=== PATIENT | male | born 1965 | race Caucasian/White ===

== ENCOUNTER 2020-11-23 19:16 | Emergency (ER) | payer SELFPAY ==
--- OUTSIDE RECORDS SUMMARY | 2020-11-23 19:19 | XMS REPORT | Continuity of Care Document ---
:1965 Author Organization [facility] t Address [address] [place] [address] Care Team Providers Name Role Phone COCO RICHTER Attending Clinician Unavailable COCO RICHTER Admitting Clinician Unavailable Problems Condition Condition Condition Status Onset Resolution Last Treating Co mments Source Name Details Category Date Date Treatment Clinician Date Anterior Anterior Diagnosis Active 2017-[address] [facility] chest wall chest wall 1-18 Sarah kes - pain pain 00:00: Memoria 00 l (LUF/LI V/SA) Fracture Fracture Problem Active 2014[facility] multiple [facility]: [facility] a ribs ribs 00 l (LUF/LI V/SA) Heart Heart Problem Active [facility] disease disease [facility] - NOS NOS [facility] (LUF/LI V/SA) Myocardial Myocardial Problem Active [facility] infarction infarction Sarah kes - [facility] l (LUF/LI V/SA) Hypertensi Hypertensi Problem Active [facility] ve ve [facility] - disorder disorder [facility] (LUF/LI V/SA) Acute pain Acute pain Problem [facility] ([facility]/LI V/SA) Chest pain Chest pain Problem [facility] ([facility]LI [facility]/SA) Numbness Numbness Problem [facility]SA) Allergies, Adverse Reactions, Alerts This patient has no known allergies or adverse reactions. Social History Smoking Status Start Date Stop Date Source Never sm[facility]) Medications Ordered Filled Start Stop Current Ordering Indication Dosage Frequency Signature Comments Components Source Medication Medication Date Date Medication? Clinician (SIG) Name Name Acetaminoph Acetaminoph Yes pain 1tab Q5H [facility] en 300 MG / en 300 MG / L ukes - Codeine Codeine [facility] Phosphate Phosphate l 30 MG Oral 30 MG Oral (SARAH F/LI Tablet Tablet V/SA) Cyclobenzap Cyclobenzap Yes 5mg TID [facility] rine Oral rine Oral [facility] ([facility] V/SA) Naproxen Naproxen Yes 500mg BID [facility] 500 MG Oral 500 MG Oral L ukes - Tablet Tablet [facility] (LUF/LI V/SA) Immunizations Ordered Immunization Filled Immunization Date Status Commen ts Source Name Name NOT CURRENT NOT CURRENT Unknown Completed [facility] (LUF/RAIZA/SA) Vital Signs Vital Name Observation Time Observation Value Comments Source Body Temperature 2018-05-13 16:50:00 97.9 F [facility] (LUF/RAIZA/SA) Pulse Rate 2018-05-13 16:50:00 91 /min [facility] (LUF/RAIZA/SA) Respiratory Rate 2018-05-13 16:50:00 20 /min [facility] (LUF/RAIZA/SA) O2% BldC Oximetry 2018-05-13 16:50:00 97 % [facility] (LUF/RAIZA/SA) BP Systolic 2018-05-13 16:50:00 111 mm[Hg] [facility] (LUF/RAIZA/SA) BP Diastolic 2018-05-13 16:50:00 83 mm[Hg] [facility] (LUF/RAIZA/SA) Height 2018-05-13 16:50:00 67 in [facility] L [facility] (LUF/RAIZA/SA) Weight Measured 2018-05-13 16:50:00 150 lbs [facility] S t [facility] (LUF/RAIZA/SA) BMI (Body Mass Index) 2018-05-13 16:50:00 23.5 [facility] (LUF/RAIZA/SA) Procedures This patient has no known procedures. Encounters Start End Encounter Admission Attending Care Care Encounter Source Date/Time Date/Time Type Type Clinicians Facility Department ID 2018-05-13 2018-05-13 Inpatient [facility] [id number] [facility] [address] 16:23:00 18:56:00 [facility] L [facility] - N, [address] [place], [place]LUF[place] [address] Results Test Description Test Time Test Comments Results Result Comments Source TROPONIN-I Quantitative 2018-05-13 18:35:00 Test Item Value Reference Range Interpretation Comme nts Troponin-I (test code = <0.015 ng/ml 0.000-0.034 N The 99th Percentile URL is 0.045 TROP) ng/mL for the S trishmens [place] Troponin I. Th e Joint Society of Card iology/[place] College of Card iology (ESC/ACC) and the [facility] Academy of Clinical Bioche holley Standards of Laboratory P ractices (NACB) recommends that the diagnosis of AMI includes th e presence of clinical histor y suggestive of Acute Coronary Syndrome (ACS) and a maximum rory ntration of cardiac troponi n exceeding the 99th percentile of a normal reference popul ation [upper reference limit (URL)] on at least one occas ion during the first 24 hours after the clinical event. Repeat @ [id number] 17:23:00 Test Item Value Reference Range Interpretation Comments CKMB (test code = CKMB) 2.30 ng/ml 0.00-2.36 TROPONIN-I [id number] 17:23:00 Test Item Value Reference Range Interpretation Comments Troponin-I (test <0.015 ng/ml 0.000-0.034 N The 99th Pe rcentile URL code = TROP) is 0.045 ng/mL for the Siemens [place] T roponin I. The Joint Euro pean Society of Cardiology/[facility] College of Card iology (ESC/ACC) and t [facility] of Clinical Bioche holley Standards of La boratory Practices (NACB ) recommends that the diagnosis of AM I includes the presence of clinical history suggest renetta of Acute Coronary Syndrome (ACS) and a max imum concentration o f cardiac troponin exceed ing the 99th percentile of a normal referenc e population [upp er reference limit (URL)] on at least one oc casion during the firs t 24 hours after the clini archana event. [id number] 17:23:00 Test Item Value Reference Range Interpretation Comments CPK (test code = CPK) 246 U/L 30-135 H XR CHEST 2 PA [id number] 17:20:54EXAM: XR CHEST 2 PA LATERALINDICATION: Chest painCOMPARISON: Chest x-rays 06/02/2015, 09/07/13 and 05/26FINDINGS:MEDICAL DEVICES: NoneLUNGS: The lungs are diffusely hyperinflated. Calcified bibasilar granulomataare stable. No soft tissue mass or infiltrate.PLEURA: No effusions or pneumothorax.HEARTAND MEDIASTINUM: Normal size and contour.BONES AND SOFT TISSUES: Intact. Degenerative changes of the distal rightclavicle are stable. Calcified left axillary soft tissue nodule measures 19 mmand is stable. A round metallic foreign body in the right chest wall is stable.IMPRESSION:Stable pulmonary hyperinflation. No acute cardiopulmonary process. Otherfindings in the chest are stable.This final report was electronically signed by Dr Ebony Rodriguez MD 05/13/20185:14 PMDictated By: EBONY RODRIGUEZDate: 05/13/2018 17:14PT AND [id number] 17:08:00 Test Item Value Reference Range Interpretation Comments Protime (test code 10.3 seconds 9.0-11.8 = PT) INR (test code = 1.0 0.9-1.1 INR results are INR) intended ONLY t o monitor Oral Anticoagulant t herapy in stablized pa tients. The INR Therape utic Range is 2.0 - 3.0 Patients with a mechanical hear t, the INR Range is 2. 5 - 3.5 [id number] 17:08:00 Test Item Value Reference Range Interpretation Comments aPTT (test code = PTT) 27.8 seconds 25.3-35.7 [id number] 17:04:00 Test Item Value Reference Range Interpretation Comments Glucose (test code 102 mg/dl 75-110 = GLU) BUN (test code = 6.0 mg/dl 6.0-17.0 BUN) Creatinine (test 1.0 mg/dl 0.4-1.2 code = CREA) Sodium (test code = 140 mmol/l 137-145 NA) Potassium (test 3.8 mmol/l 3.5-5.0 code = K) Chloride (test code 108 mmol/l 98-107 H = CL) CO2 (test code = 24 mmol/l 22-30 CO2) Calcium (test code 8.6 mg/dl 8.4-10.2 = CALC) T Protein (test 8.1 gm/dl 5.1-8.7 code = TP) Albumin (test code 3.8 gm/dl 3.5-4.6 = ALB) A/G Ratio (test 0.9 % 1.1-2.2 L code = AGRAT) AST (SGOT) (test 24 U/L 11-36 code = AST) ALT (SGPT) (test 29 U/L 11-40 code = ALT) Alkaline Phos (test 68 U/L 47-114 code = ALKP) Total Bilirubin 0.3 mg/dl 0.2-1.2 (test code = TBIL) Globulin (test code 4.3 gm/dl 2.3-3.5 H = GLOBU) Calcium, Corrected 8.8 mg/dl 8.4-10.2 Various f ormulas exist (test code = for corrected s damaris CALCCORR) calcium results , each yielding differ ent values. This corrected resul t was based on the fo rmula: Corrected Calci um = SerumCalcium + [0.8 * ( 4 - SerumAlbu min)] EGFR if >60 Tanzanian (test code mL/min/1.73m\\ = EGFRAA) S\\2 EGFR if Non- >60 Estimate d Glomerular Tanzanian (test code mL/min/1.73m\\ Filtrat ion Rate (eGFR) = EGFRNA) S\\2 Reference Inter vals Decision Points for 18 years and older and average body ma ss: >= 60 Does not exc lude kidney disease. 30 - 59 Suggests modera te chronic kidney disease and indicat es the need for furthe r investigation including asses sment of proteinuria and cardiovascular factors. < 30 Usually in dicates a need for refe rral for assessment and management of c hronic kidney failure. CBC WITH AUTO [id number] 16:44:00 Test Item Value Reference Range Interpretation Comments WBC (test code = 7.50 10\\S\\3/ul 4.80-10.80 WBC) RBC (test code = 4.95 10\\S\\6/ul 4.70-6.10 RBC) Hemoglobin (test 15.9 gm/dl 14.0-18.0 code = HGB) Hematocrit (test 45.1 % 42.0-50.0 code = HCT) MCV (test code = 91.1 fL 80.0-94.0 MCV) MCH (test code = 32.1 pg 27.0-31.0 H MCH) MCHC (test code = 35.3 gm/dl 33.0-37.0 MCHC) RDW (test code = 13.4 % 11.5-14.5 RDWVC) Platelet (test code 222 10\\S\\3/ul 130-400 = PLT) MPV (test code = 10.4 fL 7.4-10.4 A "NOT MEASUR ED" MPV) RESULTS ARE DIS PLAYED WHEN THE INSTRU MENT HAS A SUPPRESSE D OR UNREPORTABLE RE SULT. THIS WILL MOST OFTEN HAPPEN WITH THE MPV WHEN THERE IS A N ABNORMAL PLATEL ET DISTRIBUTION DU E TO A CRITICAL LOW VA LUE OR PLATELET CLUMPI NG. THE RDW MAY BE SUPPRESSED IF T HERE ARE MULTIPLE PE AKS PRESENT ON THE RBC HISTOGRAM. IN THIS CASE, A MANUAL REVIEW OF THE SLIDE WI LL BE PERFORMED, AND RBC MORPHOLOGY WILL BE NOTED ON THE RE PORT. NE% (test code = 35.6 % 42.0-75.0 L NE) LY% (test code = 48.8 % 13.0-42.0 H LY) MO% (test code = 8.8 % 4.0-14.0 MO) EO% (test code = 5.6 % 1.0-5.0 H EO) BA% (test code = 0.8 % 0.0-3.0 BA) IG% (test code = 0.4 % 0.0-0.4 IG%) AUTO DIFF
[2020-11-23 19:46] LABS: Protime INR 0.92
[2020-11-23 19:47] LABS: Hematocrit 39.5 % (39.6-49.0); Lymphocytes % 45.5 % (15.3-44.8); MPV 8.7 fL (7.6-11.3); RBC Red Blood Cell Count 4.13 M/uL (4.33-5.43)
[2020-11-23 19:58] LABS: ALT/SGPT 27 U/L (12-78); AST/SGOT 21 U/L (15-37); Albumin 3.2 g/dL (3.4-5.0); Alkaline Phosphatase 73 U/L (45-117); BUN Blood Urea Nitrogen 7 mg/dL (7-18); Bicarbonate 23 mmol/L (21-32); Bilirubin Direct < 0.1 mg/dL (0-0.2); Bilirubin Total 0.3 mg/dL (0.2-1.0); Glucose Level 91 mg/dL (74-106); Magnesium 2.1 mg/dL (1.8-2.4); NT PRO-BNP 158 pg/mL (<125); Potassium 3.6 mmol/L (3.5-5.1); Protein, Total 7.1 g/dL (6.4-8.2); Sodium Level 135 mmol/L (136-145); Troponin (Emerg Dept Use Only) < 0.02 ng/mL (0.0-0.045)
--- NOTE | 2020-11-23 20:27 | RAD REPORT ---
EXAM DESCRIPTION: RAD - Chest Single View - 11/23/2020 7:54 pm CLINICAL HISTORY: CHEST PAIN COMPARISON: None TECHNIQUE: AP portable chest image was obtained 11/23/2020 7:54 pm . FINDINGS: No focal mass or consolidation. Interstitial markings are mildly prominent with baseline u nknown. Heart and vasculature are normal. No measurable pleural effusion and no pneumothorax. No acut e bony abnormality seen. No acute aortic findings suspected. IMPRESSION: No focal mass consolidation. Mildly prominent lung markings are probably baseline. Mild edema or infiltrate could be masked.
--- NOTE | 2020-11-23 21:07 | ER ---
Nurse's Notes [facility] Name: Escobar Chase Age: 55 yrs Sex: Male : 1965 Arrival Date: 11/23/2020 Time: 19:20 Bed 4 Private MD: Diagnosis: Angina pectoris Presentation: 11/23 19:20 Chief complaint: EMS states: chest pain that started an hour ago, Pt took 2 baby wh aspirin and was given 2 more by EMS. Pt also took 1 Nitro without relief. Pt states Hx of AK with stents. Coronavirus screen: Client denies travel out of the [place] in the last 14 days. Ebola Screen: Patient negative for fever greater than or equal to 101.5 degrees Fahrenheit, and additional compatible Ebola Virus Disease symptoms Patient denies exposure to infectious person. Initial Sepsis Screen: Does the patient meet any 2 criteria? No. Patient's initial sepsis screen is negative. Does the patient have a suspected source of infection? No. Patient's initial sepsis screen is negative. Risk Assessment: Do you want to hurt yourself or someone else? Patient reports no desire to harm self or others. Onset of symptoms was November 23, 2020. Care prior to arrival: Medication(s) given: ASA, 81 mg, x 2, IV initiated. 20 GA, in the left antecubital area. 19:20 Method Of Arrival: EMS: [facility] 19:20 Acuity: KYLIE 3 Historical: - Allergies: 19:25 No Known Allergies; - PMHx: 19:25 High Cholesterol; Myocardial infarction; Hypertension; - PSHx: 19:25 None; - Immunization history:: Adult Immunizations not up to date. - Social history:: Smoking status: Patient reports the use of cigarette tobacco products, smokes two packs cigarettes per day. Screenin:26 Abuse screen: Denies threats or abuse. Denies injuries from another. Nutritional screening: No deficits noted. Tuberculosis screening: No symptoms or risk factors identified. Fall Risk None identified. Assessment: 19:25 General: Appears in no apparent distress. Behavior is calm, cooperative, appropriate for age. Pain: Complains of pain in chest Pain radiates to right arm Pain currently is 5 out of 10 on a pain scale. Quality of pain is described as pressure, Pain began 1 hour ago. Neuro: Level of Consciousness is awake, alert, obeys commands, Oriented to person, place, time, situation, Appropriate for age. Cardiovascular: Heart tones S1 S2 Rhythm is sinus rhythm. Respiratory: Airway is patent Respiratory effort is even, unlabored, Respiratory pattern is regular, symmetrical, Breath sounds are clear bilaterally. GI: Abdomen is flat, non-distended. : No signs and/or symptoms were reported regarding the genitourinary system. EENT: No signs and/or symptoms were reported regarding the EENT system. Derm: Skin is intact, is healthy with good turgor, Skin is pink, warm \T\ dry. normal. Musculoskeletal: Circulation, motion, and sensation intact. 20:30 Reassessment: Patient appears in no apparent distress at this time. No changes from previously documented assessment. Patient and/or family updated on plan of care and expected duration. Pain level reassessed. Patient is alert, oriented x 3, equal unlabored respirations, skin warm/dry/pink. 21:45 Reassessment: Patient appears in no apparent distress at this time. Patient and/or family updated on plan of care and expected duration. Pain level reassessed. Patient is alert, oriented x 3, equal unlabored respirations, skin warm/dry/pink. Provider at bedside explaining POC need for admit. Vital Signs: 19:20 BP 106 / 71; Pulse 77; Resp 18; Temp 97.7; Pulse Ox 99% ; Weight 75.75 kg; Height 5 ft. 11 in. (180.34 cm); Pain 5/10; 20:30 BP 99 / 67; Pulse 70; Resp 18; Pulse Ox 96% ; wh 21:30 BP 114 / 72; Pulse 69; Resp 18; Pulse Ox 95% on R/A; 19:20 Body Mass Index 23.29 (75.75 kg, 180.34 cm) ED Course: 19:20 Patient arrived in ED. 19:20 Chuck Dillard MD is Attending Physician. tw4 19:24 Triage completed. 19:26 Patient has correct armband on for positive identification. Placed in gown. Bed in low wh position. Call light in reach. Side rails up X 1. residential monitor on. Pulse ox on. NIBP on. 19:26 Arm band placed on right wrist. 19:26 Maintain EMS IV. Dressing intact. Good blood return noted. Patient maintains SpO2 saturation greater than 95% on room air. 19:52 Brunilda Nolasco RN is Primary Nurse. 19:54 XRAY Chest (1 view) In Process Unspecified. EDMS 21:06 Savanah Avila MD is Hospitalizing Provider. tw4 21:58 No provider procedures requiring assistance completed. IV discontinued, intact, bleeding controlled, No redness/swelling at site. 22:00 Primary Nurse role handed off by Brunilda Nolasco RN tw4 Administered Medications: No medications were administered Outcome: 21:07 Decision to Hospitalize by Provider. tw4 21:58 AMA AMA form signed 21:58 Condition: stable 21:58 Instructed on follow up and referral plans. the need for admit. 21:58 Patient left the ED. 22:03 Patient left the ED. tw4 Signatures: Dispatcher [employer] EDMS Brunilda Nolasco RN RN Chuck Dillard MD MD tw4
--- NOTE | 2020-11-23 21:07 | EDPHYS ---
Physician Documentation [facility] Name: Escobar Chase Age: 55 yrs Sex: Male : 1965 Arrival Date: 11/23/2020 Time: 19:20 Bed 4 Private MD: ED Physician Chuck Dillard HPI: 11/23 21:52 This 55 yrs old Male presents to ER via EMS with complaints of Chest Pain. tw4 21:52 The patient or guardian reports chest pain that is located primarily in the anterior tw4 chest wall. Onset: today. The pain does not radiate. Associated signs and symptoms: The patient has no apparent associated signs or symptoms. The chest pain is described as dull, a heaviness. Duration: The patient or guardian reports a single episode, that is now resolved. Modifying factors: The symptoms are alleviated by NTG, X1. the symptoms are aggravated by nothing. The patient has experienced similar episodes in the past, a few times. Historical: - Allergies: 19:25 No Known Allergies; wh - PMHx: 19:25 High Cholesterol; Myocardial infarction; Hypertension; wh - PSHx: 19:25 None; wh - Immunization history:: Adult Immunizations not up to date. - Social history:: Smoking status: Patient reports the use of cigarette tobacco products, smokes two packs cigarettes per day. ROS: 21:52 Constitutional: Negative for fever, chills, and weight loss, Eyes: Negative for injury, tw4 pain, redness, and discharge, Respiratory: Negative for shortness of breath, cough, wheezing, and pleuritic chest pain, Abdomen/GI: Negative for abdominal pain, nausea, vomiting, diarrhea, and constipation, Back: Negative for injury and pain, MS/Extremity: Negative for injury and deformity, Skin: Negative for injury, rash, and discoloration, Neuro: Negative for headache, weakness, numbness, tingling, and seizure. 21:52 Cardiovascular: Positive for chest pain. Exam: 21:52 Constitutional: This is a well developed, well nourished patient who is awake, alert, tw4 and in no acute distress. Head/Face: Normocephalic, atraumatic. Chest/axilla: Normal chest wall appearance and motion. Nontender with no deformity. No lesions are appreciated. Cardiovascular: Regular rate and rhythm with a normal S1 and S2. No gallops, murmurs, or rubs. Normal PMI, no JVD. No pulse deficits. Respiratory: Lungs have equal breath sounds bilaterally, clear to auscultation and percussion. No rales, rhonchi or wheezes noted. No increased work of breathing, no retractions or nasal flaring. Abdomen/GI: Soft, non-tender, with normal bowel sounds. No distension or tympany. No guarding or rebound. No evidence of tenderness throughout. Back: No spinal tenderness. No costovertebral tenderness. Full range of motion. MS/ Extremity: Pulses equal, no cyanosis. Neurovascular intact. Full, normal range of motion. Neuro: Awake and alert, GCS 15, oriented to person, place, time, and situation. Cranial nerves II-XII grossly intact. Motor strength 5/5 in all extremities. Sensory grossly intact. Cerebellar exam normal. Normal gait. Vital Signs: 19:20 BP 106 / 71; Pulse 77; Resp 18; Temp 97.7; Pulse Ox 99% ; Weight 75.75 kg; Height 5 ft. wh 11 in. (180.34 cm); Pain 5/10; 20:30 BP 99 / 67; Pulse 70; Resp 18; Pulse Ox 96% ; wh 21:30 BP 114 / 72; Pulse 69; Resp 18; Pulse Ox 95% on R/A; wh 19:20 Body Mass Index 23.29 (75.75 kg, 180.34 cm) wh MDM: 19:20 Patient medically screened. tw4 21:58 Differential diagnosis: acute myocardial infarction, acute pericarditis, esophagitis, tw4 pulmonary embolus, stable angina, thoracic aortic disection, unstable angina. Data reviewed: vital signs, nurses notes. Data interpreted: Pulse oximetry: Interpretation: normal. Test interpretation: by ED physician or midlevel provider: ECG, plain radiologic studies. Counseling: I had a detailed discussion with the patient and/or guardian regarding: the historical points, exam findings, and any diagnostic results supporting the discharge/admit diagnosis, the presence of at least one elevated blood pressure reading (>120/80) during this emergency department visit, lab results, radiology results. Refusal of service: The patient/guardian displays adequate decision making capability and despite a detailed discussion of alternatives, benefits, risks, and consequences refuses: Admission to the hospital for further work-up and treatment. 11/23 19:21 Order name: Basic Metabolic Panel [facility] 11/23 19:21 Order name: CBC with Diff tw 11/23 19:21 Order name: LFT's; Complete Time: 21:05 tw4 11/23 19:21 Order name: Magnesium; Complete Time: 21:05 tw4 11/23 19:21 Order name: NT PRO-BNP; Complete Time: 21:05 tw4 11/23 19:21 Order name: PT-INR; Complete Time: 21:05 tw4 11/23 19:21 Order name: Troponin (emerg Dept Use Only); Complete Time: 21:05 tw4 11/23 19:21 Order name: XRAY Chest (1 view); Complete Time: 21:05 tw4 11/23 19:21 Order name: EKG; Complete Time: 19:22 tw4 11/23 19:21 Order name: Cardiac monitoring; Complete Time: 19:30 tw4 11/23 19:21 Order name: EKG - Nurse/Tech; Complete Time: 19:30 tw4 11/23 19:22 Order name: Basic Metabolic Panel; Complete Time: 21:05 EDMS 11/23 19:22 Order name: CBC with Automated Diff; Complete Time: 21:05 EDMS 11/23 21:17 Order name: COVID-19 : Document "Date of Symptom Onset" if Symptomatic. 11/23 19:21 Order name: IV Saline Lock; Complete Time: 19:52 tw4 11/23 19:21 Order name: Labs collected and sent; Complete Time: 19:52 [facility] 11/23 19:21 Order name: O2 Per Protocol; Complete Time: 19:52 [facility] 11/23 19:21 Order name: O2 Sat Monitoring; Complete Time: 19:30 tw4 EC/01 02:06 Rate is 75 beats/min. Rhythm is regular. QRS Nicholson is Normal. DE interval is normal. QRS tw4 interval is normal. QT interval is normal. No Q waves. T waves are Normal. No ST changes noted. Clinical impression: NSR w/ Non-specific ST/T Changes. Interpreted by me. Reviewed by me. Administered Medications: No medications were administered Disposition: 11/23/20 21:21 Patient has left against medical advice. Impression: Angina pectoris. - Patients states they are going to Home. - Condition is Stable. - Discharge Instructions: Croup, Pediatric, Cool Mist Vaporizer, Stridor, Pediatric. - Prescriptions for prednisolone 15 mg/5 mL Oral Solution - take 3 milliliter by ORAL route 2 times per day for 5 days with food; 30 milliliter. Follow up: Private Physician; When: Upon discharge from the Emergency Department; Reason: Recheck today's complaints, Continuance of care, Re-evaluation by your physician. - Problem is new. - Symptoms have improved. Signatures: Dispatcher [employer] EDBrunilda Tavera RN RN Chuck Dillard MD MD tw4 Corrections: (The following items were deleted from the chart) 11/23 21: 21:07 Hospitalization Ordered by Savanah Avila MD for Inpatient Admission. Preliminary tw4 diagnosis is Angina pectoris. Bed requested for Telemetry/MedSurg (Inpatient). Status is Inpatient Admission. Condition is Stable. Problem is an ongoing problem. Symptoms have improved. tw4 21:29 21:21 11/23/2020 21:21 Patients has left against medical advice. Impression: Acute tw4 obstructive laryngitis [croup]. Patient states they are going to Home. Condition is Stable. Follow up: Private Physician; When: Upon discharge from the Emergency Department; Reason: Recheck today's complaints, Continuance of care, Re-evaluation by your physician. Problem is new. Symptoms have improved. tw4 21:58 21:29 11/23/2020 21:21 Patients has left against medical advice. Impression: Angina wh pectoris. Patient states they are going to Home. Condition is Stable. Discharge Instructions: Croup, Pediatric, Cool Mist Vaporizer, Stridor, Pediatric. Prescriptions for prednisolone 15 mg/5 mL Oral Solution - take 3 milliliter by ORAL route 2 times per day for 5 days with food; 30 milliliterFollow up: Private Physician; When: Upon discharge from the Emergency Department; Reason: Recheck today's complaints, Continuance of care, Re-evaluation by your physician. Problem is new. Symptoms have improved. tw4 22:01 21:58 11/23/2020 21:21 Patients has left against medical advice. Impression: Angina tw4 pectoris. Patient states they are going to Home. Condition is Stable. Discharge Instructions: Croup, Pediatric, Cool Mist Vaporizer, Stridor, Pediatric. Prescriptions for prednisolone 15 mg/5 mL Oral Solution - take 3 milliliter by ORAL route 2 times per day for 5 days with food; 30 milliliterFollow up: Private Physician; When: Upon discharge from the Emergency Department; Reason: Recheck today's complaints, Continuance of care, Re-evaluation by your physician. Problem is new. Symptoms have improved. wh
[2020-11-23 22:14] VITALS: TEMP 97.7
[2020-11-23 22:17] VITALS: BP 114/72; O2SAT 95
--- NOTE | 2020-11-25 12:02 | EKG ---
Test Date: 2020-11-23 Test Time: 19:26:30 Mandarin Chinese Teacher: SAMMY MEASUREMENT RESULTS: Intervals: Rate: 75 [place]: 134 QRSD: 102 QT: 424 QTc: 473 [place]: P: 64 [place]: 134 QRS: 71 T: -15 INTERPRETIVE STATEMENTS: Normal sinus rhythm Inferior infarct, age undetermined Abnormal ECG No previous ECG available for comparison Electronically Signed On 11-25-20 11:54:34 CDT by David Montelongo
== END 2020-11-23 22:03 | disposition left against medical advice (07) ==
LOC: ER 19:16
DX: I20.9 Angina pectoris, unspecified (principal); I10 Essential (primary) hypertension; F17.210 Nicotine dependence, cigarettes, uncomplicated
CPT/HCPCS: 36415; 71045; 80048; 80076; 83735; 83880; 84484; 85025; 85610; 93005; 99284